=== PATIENT | male | born 1980 | race Asian ===

== ENCOUNTER → 2020-11-05 07:09 | Outpatient (CLI) | payer OTHER, SELFPAY ==
--- NOTE | 2020-11-05 | DI.MRI.S_ITS ---
PROCEDURE: MR KNEE RT WO CON INDICATIONS: Pain in right knee TECHNIQUE: Noncontrast sagittal PD fast spin echo and T2 fast spin echo with fat saturation, sagittal 3-D FLASH with fat saturation; coronal T1 spin echo and PD fast spin echo with fat saturation, and axial PD fast spin echo with fat saturation through the knee. COMPARISON: None. FINDINGS: Image quality: Excellent. Menisci: There is truncation of the free edge of the body and posterior horn medial meniscus, indicating radial tearing. Superimposed linear oblique high signal intensity traverses the medial meniscal body and posterior horn, demonstrating superior and inferior articular surface extension, indicating complex tearing. Lateral meniscus is intact. Cruciate ligaments: The anterior cruciate ligament graft and posterior cruciate ligaments appear intact. Medial structures: The medial collateral ligament appears intact but demonstrates mild surrounding T2 signal elevation. Visualized portions of the pes anserinus tendons appear normal. No abnormal bursal fluid. Lateral structures: The lateral collateral ligament demonstrates mild T2 signal elevation at the femoral origin. The long and short heads of the biceps femoris tendon appear intact. The popliteus tendon appears normal. Iliotibial band appears normal. Anterior structures: The quadriceps and patellar tendons appear intact. Patellar alignment is normal. No femoral trochlear dysplasia or ventral trochlear prominence. Mild scarring and edema in the infrapatellar fat pad. Bones and cartilage: No bone marrow contusions or fractures. There is moderate articular cartilage loss diffusely overlying the weight-bearing aspects of the medial femoral condyle and medial tibial plateau. Joint space: There is a small knee joint effusion and a trace Dye's cyst. Normal appearing synovial plicae are incidentally noted. IMPRESSION: 1. Complex tearing of the medial meniscus. 2. Intact ACL graft. 3. MCL strain. 4. Low-grade partial thickness lateral collateral ligament tear. 5. Small knee joint effusion and trace Dye's cyst. Dictated by: Yasmany Kaye M.D. on 11/05/2020 at 10:55 Approved by: Yasmany Kaye M.D. on 11/05/2020 at 11:03
== END ==
PROVIDERS: Referring Provider Orthopaedic Surgery; Visit Provider Orthopaedic Surgery
DX: M25.561 Pain in right knee (principal); S83.231A Complex tear of medial meniscus, current injury, right knee, initial encounter; S83.411A Sprain of medial collateral ligament of right knee, initial encounter; S83.421A Sprain of lateral collateral ligament of right knee, initial encounter; M25.461 Effusion, right knee
CPT/HCPCS: 73721